=== PATIENT | female | born 1965 | race Caucasian/White ===

== ENCOUNTER 2018-04-21 23:16 | Emergency (ER) | payer BC ==
[~2018-04-21] VITALS: Ht 170.2 cm; Wt 70.0 kg
[2018-04-21] MEDS ORDERED: SODIUM CHLORIDE 0.9% 1,000 ML IV ONE (23:37)
[2018-04-21] MEDS ORDERED: FAMOTIDINE 20MG/2ML VIAL IV STA (23:37)
[2018-04-21] MEDS ORDERED: ONDANSETRON HCL 4MG/2ML INJ IV STA (23:37)
[2018-04-22] MEDS ORDERED: METOCLOPRAMIDE HCL 10MG/2ML VIAL IV ONE (00:30)
[2018-04-22] MEDS ORDERED: KETOROLAC 30MG/ML VIAL IV ONE (00:30)
[2018-04-22 00:39] LABS: BASOPHILS % 0.2 % (0.0-2.0); EOSINOPHILS % 0.8 % (0.0-5.0); HEMATOCRIT. 39.4 % (36.0-48.0); HEMOGLOBIN. 13.3 g/dL (12.0-16.0); LYMPHOCYTES % 7.4 % (20.0-50.0); MEAN CORPUSCULAR HEMOGLOBIN 31.7 pg (28.0-32.0); MEAN CORPUSCULAR VOLUME 93.7 fL (81.0-99.0); MEAN PLATELET VOLUME 9.5 fl (7.4-10.4); MONOCYTES % 5.8 % (2.0-8.0); NEUTROPHILS % 85.8 % (40.0-76.0); PLATELET 264 x1000/uL (130-400); RED BLOOD CELL COUNT 4.21 mill/uL (4.2-5.4); RED CELL DISTRIBUTION WIDTH 13.4 % (11.6-14.6)
[2018-04-22 00:40] LABS: CHLORIDE 108 mEq/L (98-107)
[2018-04-22 00:44] LABS: PROTHROMBIN TIME 10.5 sec (9.1-11.1)
[2018-04-22 00:48] LABS: ETHANOL BLOOD < 10 mg/dL
[2018-04-22] MEDS ORDERED: SODIUM CHLORIDE 0.9% 1,000 ML IV ONE (01:45)
[2018-04-22 03:54] VITALS: BP 119/68
== END 2018-04-22 03:58 | disposition home or self-care (01) ==
LOC: ER 23:16
DX: K52.9 Noninfective gastroenteritis and colitis, unspecified (principal); R11.2 Nausea with vomiting, unspecified
CPT/HCPCS: 36415; 71045; 80053; 83690; 84484; 85025; 85610; 93005; 96361; 96374; 96375; 99285; G0482; J1885; J2405; J2765; J3490; J7030; Z7610